=== PATIENT | male | born 1985 | race Caucasian/White ===

== ENCOUNTER 2017-07-11 11:07 | Emergency (ER) | payer SELFPAY ==
--- NOTE | 2017-07-11 12:50 | RAD ---
THREE VIEWS RIGHT HAND: History: Punched a countertop in anger. Right hand pain. FINDINGS: AP, lateral, and oblique views right hand obtained. There is angulation and contour change seen in the fifth right metacarpal. This is compatible with li anthony old healed boxer's fracture. There does appear to be a nondisplaced area of lucency in the base of the fourth right metacarpal. Th is is concerning for a base fourth metacarpal fracture. The rest of the right hand is unremarkable. IMPRESSION: 1. Old healed fifth right metacarpal fracture. 2. Possible subtle base fourth right metacarpal fracture. POS: [facility]
== END 2017-07-11 12:47 | disposition home or self-care (01) ==
LOC: MADERS 11:07
DX: S62.344A Nondisplaced fracture of base of fourth metacarpal bone, right hand, initial encounter for closed fracture (principal); F32.9 Major depressive disorder, single episode, unspecified; W22.03XA Walked into furniture, initial encounter